=== PATIENT | male | born 1945 | race Caucasian/White ===

== ENCOUNTER → 2018-12-17 | Outpatient (REF) | payer MEDICARE | LOC: M LAB REF 12:56 | PROVIDERS: ATTEND Nurse Practitioner Family | DX: N18.3 Chronic kidney disease, stage 3 (moderate) (principal) ==

== ENCOUNTER → 2020-12-29 | Outpatient (CLI) | payer MEDICARE ==
--- NOTE | 2020-12-29 16:29 | REP ---
INDICATION: CYST OF KIDNEY, CKD STAGE 3A. COMPARISON: None. FINDINGS: The prevoid bladder volume measured 1258 cc. The postvoid bladder volume measured 1023 cc. The postvoid residual is 81%. IMPRESSION: 81% postvoid residual with distended bladder. <Electronically signed by Mele Valdez > 12/29/20 [id number]
--- NOTE | 2020-12-29 16:33 | REP ---
INDICATION: CYST OF KIDNEY, CKD STAGE 3A. COMPARISON: 10/23/2014 FINDINGS: Right kidney: Size-10.9 x 5.6 x 6.8 cm. Parenchymal atrophy. No , mass, calculus or hydronephrosis. 1 cm upper pole cyst and 3 cm lower pole cyst. Left kidney: Size-10.8 x 5.4 x 5.2 cm. Parenchymal atrophy. No hydronephrosis, mass or calculus. 1 cm and 1.8 cm midpole cysts. IMPRESSION: Bilateral renal cysts. Parenchymal atrophy both kidneys. <Electronically signed by Mele Valdez > 12/29/20 [id number]
== END ==
LOC: M RAD 13:17
PROVIDERS: ATTEND Nurse Practitioner Family
DX: N28.1 Cyst of kidney, acquired (principal); N18.31 Chronic kidney disease, stage 3a

== ENCOUNTER 2021-02-01 11:45 | Emergency (ER) | payer MEDICARE ==
[~2021-02-01] VITALS: Ht 170.2 cm; Wt 72.7 kg
[2021-02-01] MEDS ORDERED: LIDOCAINE 2% 5ML JELLY UROJET TOP ONE (14:45)
[2021-02-01 15:42] LABS: APPEARANCE, URINE CLEAR (CLEAR); BACTERIA, URINE AUTO NEGATIVE (NEGATIVE); BILIRUBIN, URINE AUTO NEGATIVE (NEGATIVE); BLOOD, URINE BLOOD NEGATIVE (NEGATIVE); GLUCOSE, URINE (UA) AUTO 1+ mg/dL (NEGATIVE); KETONE, URINE AUTO NEGATIVE (NEGATIVE); LEUKOCYTE ESTERASE, URINE AUTO NEGATIVE (NEGATIVE); MUCUS, URINE SMALL (NEGATIVE); NITRITE, URINE AUTO NEGATIVE (NEGATIVE); PROTEIN, URINE AUTO NEGATIVE (NEGATIVE); RBC, URINE AUTO 3 /HPF (0-3); SPECIFIC GRAVITY URINE AUTO 1.012 (1.002-1.035); SQUAMOUS EPITHELIAL CELL UR AU 0 /HPF (0-6); UROBILINOGEN, URINE AUTO 0.2 mg/dL (0.0-2.0); WBC, URINE AUTO 2 /HPF (0-3)
[2021-02-01 15:43] LABS: COLOR, URINE YELLOW (YELLOW)
[2021-02-01 16:22] VITALS: BP 163/72
[2021-02-01] MEDS ORDERED: FLOM0.4C39 PO (16:24)
[2021-02-01] MEDS ORDERED: AMLO1TAB25 PO (16:24)
[2021-02-01] MEDS ORDERED: MAGN400T2 PO (16:24)
[2021-02-01] MEDS ORDERED: FINA5TAB2 PO (16:24)
[2021-02-01] MEDS ORDERED: METF10004 PO (16:24)
[2021-02-01] MEDS ORDERED: LISI20TA33 PO (16:24)
[2021-02-01] MEDS ORDERED: PIOG1TAB37 PO (16:24)
[2021-02-01] MEDS ORDERED: FENO48TA7 PO (16:24)
[2021-02-01] MEDS ORDERED: ASPI-1 PO (16:24)
[2021-02-01] MEDS ORDERED: ZOCO40TA PO (16:24)
== END 2021-02-01 16:58 | disposition home or self-care (01) ==
LOC: M ED 11:45
DX: R33.9 Retention of urine, unspecified (principal)

== ENCOUNTER → 2021-04-08 | Outpatient (REF) | payer MEDICARE ==
[~2021-04-08] MED LIST: AMLO1TAB25 PO; ASPI-1 PO; BACTDSTA PO; FENO48TA8 PO; FINA5TAB2 PO; FLOM0.4C39 PO; HYDR-3713 PO; LISI20TA33 PO; MAGN400T2 PO; METF10004 PO; PIOG1TAB37 PO; SIMV40TA20 PO; ZOCO40TA PO
[2021-04-08 17:21] LABS: APPEARANCE, URINE CLOUDY (CLEAR); BACTERIA, URINE AUTO 1+ (NEGATIVE); BILIRUBIN, URINE AUTO NEGATIVE (NEGATIVE); BLOOD, URINE BLOOD 1+ (NEGATIVE); COLOR, URINE YELLOW (YELLOW); GLUCOSE, URINE (UA) AUTO 1+ mg/dL (NEGATIVE); KETONE, URINE AUTO NEGATIVE (NEGATIVE); LEUKOCYTE ESTERASE, URINE AUTO 3+ (NEGATIVE); NITRITE, URINE AUTO NEGATIVE (NEGATIVE); PROTEIN, URINE AUTO 2+ mg/dL (NEGATIVE); RBC, URINE AUTO 46 /HPF (0-3); SPECIFIC GRAVITY URINE AUTO 1.014 (1.002-1.035); SQUAMOUS EPITHELIAL CELL UR AU 0 /HPF (0-6); UROBILINOGEN, URINE AUTO 0.2 mg/dL (0.0-2.0); WBC, URINE AUTO TNTC /HPF (0-3)
== END ==
LOC: M SMT 16:58
PROVIDERS: ATTEND Urology
DX: Z01.818 Encounter for other preprocedural examination (principal); N40.1 Benign prostatic hyperplasia with lower urinary tract symptoms

== ENCOUNTER → 2021-04-14 | Outpatient (CLI) | payer MEDICARE ==
[~2021-04-14] MED LIST changes: -BACTDSTA PO; -HYDR-3713 PO
== END ==
LOC: M LABSMTC 10:30
PROVIDERS: ATTEND Anesthesiology
DX: Z01.812 Encounter for preprocedural laboratory examination (principal); Z11.52 Encounter for screening for COVID-19

== ENCOUNTER 2021-04-19 13:14 | Day surgery (SDC) | payer MEDICARE ==
[~2021-04-19] VITALS: Ht 170.2 cm; Wt 70.3 kg
[2021-04-19] VITALS (7 sets, daily range): BP systolic 101–133; BP diastolic 43–71
[~2021-04-19 13:14] MED LIST changes: +CIPROFLOXACIN 400 MG in IV 1 EA IV ONE; +LIDOCAINE 2% 100MG/5ML SDV (FOR ANES.) As Ordered ONE; +LR 1,000 ML IV ONE; +METOCLOPRAMIDE INJ 10MG/2ML VIAL (J2765 PER 1) As Ordered ONE; +MIDAZOLAM INJ 2MG/2ML VIAL (J2250 PER 1MG) As Ordered ONE; +ONDANSETRON 4MG/2ML VIAL As Ordered ONE; +dexameTHASONE 4 MG/ML 1ML VIAL (J1100 PER 1MG) As Ordered ONE; +fentaNYL 100 MCG/2 ML INJECTION As Ordered ONE; +propofoL 200 MG/20 ML VIAL As Ordered ONE
[2021-04-19] MEDS ORDERED: BACTDSTA PO (13:29)
[2021-04-19] MEDS ORDERED: LIDOCAINE 1% SDV 30ML VIAL As Ordered ONE (13:41)
[2021-04-19] MEDS ORDERED: ROCURONIUM BROMIDE 50 MG/5 ML VIAL As Ordered ONE (14:18)
[2021-04-19] MEDS ORDERED: SUGAMMADEX SODIUM 500 MG/5 ML VIAL (BRIDION) As Ordered ONE (14:31)
[2021-04-19] MEDS ORDERED: ACETAMINOPHEN 1000MG 100ML IV BTL (OFIRMEV) (J0131 PER 10MG) As Ordered ONE (14:35)
[2021-04-19] MEDS ORDERED: ACETAMINOPHEN TAB 650MG DOSE (2X325MG) PO PRN (15:10)
[2021-04-19] MEDS ORDERED: ONDANSETRON 4MG/2ML VIAL IV PRN ×2 (15:10→15:20)
[2021-04-19] MEDS ORDERED: GLUCAGON INJ 1MG VIAL SC PRN (15:10)
[2021-04-19] MEDS ORDERED: DEXTROSE 50% 50 ML SYRINGE IV PRN (15:10)
[2021-04-19] MEDS ORDERED: GLUCOSE 4GM CHEW TABLET PO PRN (15:10)
[2021-04-19] MEDS ORDERED: NORCO, ANEXSIA 5/325MG TABLET (HYDROcodone/ACETAMINOPHEN) PO PRN (15:10)
[2021-04-19] MEDS ORDERED: PERCOCET 5MG/325MG TAB PO PRN (15:20)
[2021-04-19] MEDS ORDERED: fentaNYL 100 MCG/2 ML INJECTION IV PRN (15:20)
[2021-04-19] MEDS ORDERED: LR 1,000 ML IV SCH (15:20)
[2021-04-19 16:53] LABS: HEMATOCRIT 32.5 % (42.0-52.0); HEMOGLOBIN 10.4 g/dl (13.5-17.5); MEAN CORPUSCULAR HEMOGLOBIN 31.2 pg (27.0-33.0); MEAN CORPUSCULAR VOLUME 97.6 fl (80.0-96.0); PLATELET COUNT, AUTOMATED 232 10^3/uL (150-450); RED BLOOD COUNT 3.33 10^6/uL (4.30-6.10); WHITE BLOOD COUNT 6.5 10^3/uL (4.0-10.0)
[2021-04-19] MEDS: D5W/0.45% SODIUM CHLORIDE 1,000 ML IV SCH (17:52)
[2021-04-19] MEDS: CIPROFLOXACIN 500MG TABLET PO SCH (18:37)
[2021-04-19] MEDS: HumaLOG INSULIN (NovoLOG) PER UNIT SC SCH (18:38)
[2021-04-19] MEDS ORDERED: HumaLOG INSULIN (NovoLOG) PER UNIT SC SCH (21:00)
[2021-04-20 02:05] VITALS: BP 116/54
[2021-04-20] MEDS: CIPROFLOXACIN 500MG TABLET PO SCH (05:35)
[2021-04-20] MEDS: D5W/0.45% SODIUM CHLORIDE 1,000 ML IV SCH (05:36)
[2021-04-20 06:24] LABS: HEMATOCRIT 29.1 % (42.0-52.0); HEMOGLOBIN 9.3 g/dl (13.5-17.5); MEAN CORPUSCULAR HEMOGLOBIN 30.8 pg (27.0-33.0); MEAN CORPUSCULAR VOLUME 96.4 fl (80.0-96.0); PLATELET COUNT, AUTOMATED 215 10^3/uL (150-450); RED BLOOD COUNT 3.02 10^6/uL (4.30-6.10); WHITE BLOOD COUNT 8.1 10^3/uL (4.0-10.0)
[2021-04-20 06:52] LABS: ALBUMIN 2.6 GM/DL (3.2-5.2); BILIRUBIN,TOTAL 0.2 MG/DL (0.2-1.0); CALCIUM LEVEL 8.4 MG/DL (8.8-10.2); CREATININE FOR GFR 2.5 MG/DL (0.70-1.30); GLOMERULAR FILTRATION RATE 26.8 (>42); POTASSIUM SERUM 4.5 MEQ/L (3.5-5.1); TOTAL PROTEIN 5.3 GM/DL (6.4-8.2)
[2021-04-20] MEDS ORDERED: HYDR-3713 PO (07:16)
[2021-04-20] MEDS ORDERED: FENOFIBRATE 48MG TABLET (TRICOR) PO SCH (09:00)
[2021-04-20] MEDS ORDERED: SIMVASTATIN 40 MG TAB PO SCH (09:00)
[2021-04-20] MEDS ORDERED: FINASTERIDE 5 MG TAB PO SCH (09:00)
[2021-04-20] MEDS ORDERED: NON-FORMULARY 1 EA EA PO SCH (09:00)
[2021-04-20 09:28] VITALS: BP 120/52
[2021-04-20] MEDS: HumaLOG INSULIN (NovoLOG) PER UNIT SC SCH ×2 (09:29→12:46)
== END 2021-04-20 16:53 | disposition home health service (06) ==
LOC: M SDC 13:14 → M MSPAV 17:08 → M SDC 04-20 16:53
PROVIDERS: ATTEND Urology
DX: R33.9 Retention of urine, unspecified (principal); N40.1 Benign prostatic hyperplasia with lower urinary tract symptoms; E11.9 Type 2 diabetes mellitus without complications; I10 Essential (primary) hypertension; Z79.84 Long term (current) use of oral hypoglycemic drugs; Z79.899 Other long term (current) drug therapy; E78.5 Hyperlipidemia, unspecified
CPT/HCPCS: 36415; 51040; 80053; 85027; J0131; J0744; J1100; J2250; J2405; J2765; J3010

== ENCOUNTER → 2022-05-02 | Outpatient (CLI) | payer MEDICARE ==
[~2022-05-02] MED LIST changes: +BACTDSTA PO; -CIPROFLOXACIN 400 MG in IV 1 EA IV ONE; +HYDR-3713 PO; -LIDOCAINE 2% 100MG/5ML SDV (FOR ANES.) As Ordered ONE; -LR 1,000 ML IV ONE; -METOCLOPRAMIDE INJ 10MG/2ML VIAL (J2765 PER 1) As Ordered ONE; -MIDAZOLAM INJ 2MG/2ML VIAL (J2250 PER 1MG) As Ordered ONE; -ONDANSETRON 4MG/2ML VIAL As Ordered ONE; -dexameTHASONE 4 MG/ML 1ML VIAL (J1100 PER 1MG) As Ordered ONE; -fentaNYL 100 MCG/2 ML INJECTION As Ordered ONE; -propofoL 200 MG/20 ML VIAL As Ordered ONE
== END ==
LOC: M PLALAB 09:30
PROVIDERS: ATTEND Urology
DX: R97.20 Elevated prostate specific antigen [PSA] (principal)

== ENCOUNTER → 2022-06-10 | Outpatient (REF) | payer MEDICARE | LOC: M SMT 09:46 | PROVIDERS: ATTEND Urology | DX: C61 Malignant neoplasm of prostate (principal); R97.20 Elevated prostate specific antigen [PSA] ==

== ENCOUNTER → 2022-06-15 | Outpatient (CLI) | payer MEDICARE ==
[~2022-06-15] MED LIST changes: +BICA50TA9; +CHOL125C5 PO; +CVS5000S2 PO; +EYECAP2 PO; +GOOD81CH3 PO; +SIMV-254 PO; -ZOCO40TA PO
[2022-06-15 15:31] LABS: HEMATOCRIT 35.6 % (42.0-52.0); HEMOGLOBIN 11.2 g/dl (13.5-17.5); MEAN CORPUSCULAR HEMOGLOBIN 30.1 pg (27.0-33.0); MEAN CORPUSCULAR HGB CONC 31.5 g/dl (32.0-36.5); MEAN CORPUSCULAR VOLUME 95.7 fl (80.0-96.0); PLATELET COUNT, AUTOMATED 347 10^3/uL (150-450); RED BLOOD COUNT 3.72 10^6/uL (4.30-6.10); WHITE BLOOD COUNT 7.9 10^3/uL (4.0-10.0)
[2022-06-15 15:50] LABS: ALBUMIN 3.3 G/DL (3.2-5.2); BILIRUBIN,TOTAL 0.5 MG/DL (0.3-1.2); CALCIUM LEVEL 9.1 MG/DL (8.3-10.6); CREATININE FOR GFR 1.86 MG/DL (0.70-1.30); GLOMERULAR FILTRATION RATE 37.6 (>42); POTASSIUM SERUM 4.6 MMOL/L (3.5-5.1); TOTAL PROTEIN 6.1 G/DL (5.7-8.2)
== END ==
LOC: M PLALAB 13:45
PROVIDERS: ATTEND Urology
DX: C61 Malignant neoplasm of prostate (principal)

== ENCOUNTER → 2022-07-06 | Outpatient (REF) | payer MEDICARE ==
[~2022-07-06] MED LIST changes: -SIMV-254 PO; +ZOCO40TA PO
== END ==
LOC: M LAB REF 17:04
PROVIDERS: ATTEND Nurse Practitioner Family
DX: N39.0 Urinary tract infection, site not specified (principal)

== ENCOUNTER → 2022-08-25 | Outpatient (REF) | payer MEDICARE ==
[~2022-08-25] MED LIST changes: +AMLO1TAB24 PO; +ASPI-527 PO; +D 1010002 PO; +FURO20TA2 PO; +GLIM2TAB29 PO; +METF-877 PO; +OCUVTAB4 PO; +ONDA4TAB6 PO; +PRED5TA PO; +SIMV-254 PO; +VITA500T40 PO; +XTAN40CA PO; -ZOCO40TA PO; +ZYTI250T PO
[2022-08-25 18:28] LABS: APPEARANCE, URINE CLOUDY (CLEAR); BACTERIA, URINE AUTO 2+ (NEGATIVE); BILIRUBIN, URINE AUTO NEGATIVE (NEGATIVE); BLOOD, URINE BLOOD 3+ (NEGATIVE); COLOR, URINE RED (YELLOW); GLUCOSE, URINE (UA) AUTO 1+ mg/dL (NEGATIVE); KETONE, URINE AUTO NEGATIVE (NEGATIVE); LEUKOCYTE ESTERASE, URINE AUTO 1+ (NEGATIVE); NITRITE, URINE AUTO NEGATIVE (NEGATIVE); PROTEIN, URINE AUTO 2+ mg/dL (NEGATIVE); RBC, URINE AUTO TNTC /HPF (0-3); SPECIFIC GRAVITY URINE AUTO 1.011 (1.002-1.035); SQUAMOUS EPITHELIAL CELL UR AU 0 /HPF (0-6); UROBILINOGEN, URINE AUTO 0.2 mg/dL (0.0-2.0); WBC, URINE AUTO 157 /HPF (0-3)
== END ==
LOC: M SMT 16:53
PROVIDERS: ATTEND Urology
DX: R31.0 Gross hematuria (principal)

== ENCOUNTER 2022-09-07 15:19 | Inpatient (IN) | payer MEDICARE ==
[~2022-09-07] VITALS: Ht 167.6 cm; Wt 62.0 kg
[~2022-09-07 15:19] MED LIST changes: +BACI1CAP PO; +DOXY-444 PO
[2022-09-07 16:50] LABS: BASO % 0.1 % (0.0-1.0); HEMATOCRIT 38.4 % (42.0-52.0); HEMOGLOBIN 12.1 g/dl (13.5-17.5); LYMPH # 0.4 10^3/uL (1.5-5.0); LYMPH % 3.8 % (24.0-44.0); MEAN CORPUSCULAR HEMOGLOBIN 29.2 pg (27.0-33.0); MEAN CORPUSCULAR HGB CONC 31.5 g/dl (32.0-36.5); MEAN CORPUSCULAR VOLUME 92.5 fl (80.0-96.0); MONO # 0.3 10^3/uL (0.0-0.8); MONO % 3.2 % (2.0-8.0); NEUTROPHILS # 9.7 10^3/uL (1.5-8.5); NEUTROPHILS % 91.9 % (36.0-66.0); PLATELET COUNT, AUTOMATED 391 10^3/uL (150-450); RED BLOOD COUNT 4.15 10^6/uL (4.30-6.10); WHITE BLOOD COUNT 10.5 10^3/uL (4.0-10.0)
[2022-09-07 17:14] LABS: ALBUMIN 2.5 G/DL (3.2-5.2); BILIRUBIN,DIRECT 0.3 MG/DL (<0.4); BILIRUBIN,TOTAL 0.6 MG/DL (0.3-1.2); CALCIUM LEVEL 8.1 MG/DL (8.3-10.6); CREATININE FOR GFR 2.03 MG/DL (0.70-1.30); GLOMERULAR FILTRATION RATE 33.9 (>42); POTASSIUM SERUM 5.1 MMOL/L (3.5-5.1); TOTAL PROTEIN 5.9 G/DL (5.7-8.2)
[2022-09-07 17:17] LABS: FREE T4 1.34 NG/DL (0.89-1.76); THYROID STIMULATING HORMONE 1.293 uIU/ML (0.55-4.78)
[2022-09-07 17:24] LABS: RSV AMPLIFICATION NEGATIVE (NEGATIVE)
[2022-09-07] MEDS ORDERED: PRED5TA PO (18:51)
[2022-09-07] MEDS ORDERED: BACI1CAP PO (18:51)
[2022-09-07] MEDS ORDERED: DOXY-443 PO (18:51)
[2022-09-07] MEDS ORDERED: HOME MED LIST COMPLETE! XX SCH (19:00)
[2022-09-07] MEDS ORDERED: ACETAMINOPHEN TAB 650MG DOSE (2X325MG) PO PRN (19:20)
[2022-09-07] MEDS ORDERED: GLUCAGON INJ 1MG VIAL SC PRN (19:20)
[2022-09-07] MEDS ORDERED: DEXTROSE 50% 50ML SYRINGE IV PRN (19:20)
[2022-09-07] MEDS ORDERED: GLUCOSE 4GM CHEW TABLET PO PRN (19:20)
[2022-09-07] MEDS ORDERED: ONDANSETRON 4MG 2ML VIAL As Ordered ONE (19:38)
[2022-09-07] MEDS ORDERED: ONDANSETRON 4MG 2ML VIAL IV ONE (19:40)
[2022-09-07 21:25] VITALS: BP 133/56
[2022-09-07] MEDS: INSULIN LISPRO (NovoLOG) PER UNIT SC SCH (22:29)
[2022-09-08] MEDS ORDERED: cefTRIAXone SOD 1 GM in D5W MINI-BAG PLUS 50 ML IV SCH (03:00)
[2022-09-08] MEDS: predniSONE 5 MG TAB PO SCH ×2 (05:50→17:37)
[2022-09-08 06:00] VITALS: BP 128/54
[2022-09-08 06:02] LABS: HEMATOCRIT 29.9 % (42.0-52.0); MEAN CORPUSCULAR HEMOGLOBIN 29.1 pg (27.0-33.0); MEAN CORPUSCULAR HGB CONC 32.1 g/dl (32.0-36.5); MEAN CORPUSCULAR VOLUME 90.6 fl (80.0-96.0); PLATELET COUNT, AUTOMATED 340 10^3/uL (150-450); WHITE BLOOD COUNT 15.1 10^3/uL (4.0-10.0)
[2022-09-08 06:19] LABS: HEMOGLOBIN 9.6 g/dl (13.5-17.5)
[2022-09-08 06:48] LABS: ALBUMIN 1.9 G/DL (3.2-5.2); BILIRUBIN,TOTAL 0.5 MG/DL (0.3-1.2); CALCIUM LEVEL 7.3 MG/DL (8.3-10.6); CREATININE FOR GFR 2.21 MG/DL (0.70-1.30); GLOMERULAR FILTRATION RATE 30.7 (>42); MAGNESIUM LEVEL 1.8 MG/DL (1.8-2.4); POTASSIUM SERUM 5.2 MMOL/L (3.5-5.1); TOTAL PROTEIN 4.4 G/DL (5.7-8.2)
[2022-09-08] MEDS ORDERED: cefTRIAXone SOD 1 GM in D5W MINI-BAG PLUS 50 ML IV ONE (07:50)
[2022-09-08] MEDS: FUROSEMIDE 20 MG TAB PO SCH (08:24)
[2022-09-08] MEDS: SIMVASTATIN 40 MG TAB PO SCH (08:24)
[2022-09-08] MEDS: ASPIRIN ENTERIC 325MG TAB PO SCH (08:24)
[2022-09-08] MEDS: CYANOCOBALAMIN 500 MCG TAB PO SCH (08:24)
[2022-09-08] MEDS: DOXYCYCLINE HYCLATE 100MG TABLET PO SCH ×2 (08:24→20:45)
[2022-09-08] MEDS: INSULIN LISPRO (NovoLOG) PER UNIT SC SCH ×4 (08:25→20:46)
[2022-09-08] MEDS ORDERED: ENTER DRUG NAME HERE (PATIENT'S OWN MED) PO SCH (09:00)
[2022-09-08] MEDS: SENOKOT S TAB PO SCH ×2 (11:11→20:45)
[2022-09-08 12:19] LABS: HEMATOCRIT 31.4 % (42.0-52.0); MEAN CORPUSCULAR HEMOGLOBIN 29.2 pg (27.0-33.0); MEAN CORPUSCULAR HGB CONC 31.8 g/dl (32.0-36.5); MEAN CORPUSCULAR VOLUME 91.5 fl (80.0-96.0); PLATELET COUNT, AUTOMATED 323 10^3/uL (150-450); RED BLOOD COUNT 3.43 10^6/uL (4.30-6.10); WHITE BLOOD COUNT 16.5 10^3/uL (4.0-10.0)
[2022-09-08] MEDS: PATIROMER SORBITEX CALCIUM 8.4 GM POWDER PACKET (VELTASSA) PO SCH (13:31)
[2022-09-08] MEDS: SODIUM BICARBONATE 325 MG TAB PO SCH ×3 (13:31→20:45)
[2022-09-08 14:00] VITALS: BP 132/53
[2022-09-08] MEDS: FINASTERIDE 5MG TAB PO SCH (20:45)
[2022-09-09] MEDS: cefTRIAXone SOD 2 GM in D5W MINI-BAG PLUS 50 ML IV SCH (02:07)
[2022-09-09] MEDS: predniSONE 5 MG TAB PO SCH ×2 (05:02→17:37)
[2022-09-09] MEDS: ONDANSETRON 4MG TAB PO PRN (05:04)
[2022-09-09 06:00] VITALS: BP 129/52
[2022-09-09 06:29] LABS: BASO % 0.1 % (0.0-1.0); HEMATOCRIT 28.1 % (42.0-52.0); HEMOGLOBIN 9.3 g/dl (13.5-17.5); LYMPH # 0.8 10^3/uL (1.5-5.0); LYMPH % 4.7 % (24.0-44.0); MEAN CORPUSCULAR HEMOGLOBIN 29.3 pg (27.0-33.0); MEAN CORPUSCULAR HGB CONC 33.1 g/dl (32.0-36.5); MEAN CORPUSCULAR VOLUME 88.6 fl (80.0-96.0); MONO % 6.3 % (2.0-8.0); NEUTROPHILS % 87.8 % (36.0-66.0); PLATELET COUNT, AUTOMATED 311 10^3/uL (150-450); RED BLOOD COUNT 3.17 10^6/uL (4.30-6.10); WHITE BLOOD COUNT 15.9 10^3/uL (4.0-10.0)
[2022-09-09 06:54] LABS: ALBUMIN 1.7 G/DL (3.2-5.2); BILIRUBIN,TOTAL 0.5 MG/DL (0.3-1.2); CALCIUM LEVEL 7.2 MG/DL (8.3-10.6); CREATININE FOR GFR 2.4 MG/DL (0.70-1.30); GLOMERULAR FILTRATION RATE 27.9 (>42); MAGNESIUM LEVEL 1.8 MG/DL (1.8-2.4); POTASSIUM SERUM 4.8 MMOL/L (3.5-5.1); TOTAL PROTEIN 4.1 G/DL (5.7-8.2)
[2022-09-09] MEDS: SODIUM BICARBONATE 325 MG TAB PO SCH ×3 (08:26→21:30)
[2022-09-09] MEDS: SENOKOT S TAB PO SCH ×2 (08:26→21:00)
[2022-09-09] MEDS: FUROSEMIDE 20 MG TAB PO SCH (08:26)
[2022-09-09] MEDS: SIMVASTATIN 40 MG TAB PO SCH (08:26)
[2022-09-09] MEDS: CYANOCOBALAMIN 500 MCG TAB PO SCH (08:26)
[2022-09-09] MEDS: DOXYCYCLINE HYCLATE 100MG TABLET PO SCH ×2 (08:26→21:30)
[2022-09-09] MEDS: ASPIRIN ENTERIC 325MG TAB PO SCH (08:26)
[2022-09-09] MEDS: INSULIN LISPRO (NovoLOG) PER UNIT SC SCH ×4 (08:27→21:00)
[2022-09-09] MEDS ORDERED: LEVEMIR (INSULIN DETEMIR) 1 UNITS/0.01ML SC ONE (09:00)
[2022-09-09] MEDS: PATIROMER SORBITEX CALCIUM 8.4 GM POWDER PACKET (VELTASSA) PO SCH (11:58)
[2022-09-09] MEDS: FINASTERIDE 5MG TAB PO SCH (21:30)
[2022-09-10] MEDS: cefTRIAXone SOD 2 GM in D5W MINI-BAG PLUS 50 ML IV SCH (02:19)
[2022-09-10 05:21] VITALS: BP 127/52
[2022-09-10] MEDS: predniSONE 5 MG TAB PO SCH ×2 (05:33→17:46)
[2022-09-10] MEDS: ONDANSETRON 4MG TAB PO PRN ×3 (05:33→12:56)
[2022-09-10] MEDS: INSULIN LISPRO (NovoLOG) PER UNIT SC SCH ×4 (07:30→20:49)
[2022-09-10 08:08] LABS: BASO % 0.1 % (0.0-1.0); HEMATOCRIT 27.9 % (42.0-52.0); HEMOGLOBIN 9.4 g/dl (13.5-17.5); LYMPH # 0.7 10^3/uL (1.5-5.0); LYMPH % 4.6 % (24.0-44.0); MEAN CORPUSCULAR HEMOGLOBIN 29.6 pg (27.0-33.0); MEAN CORPUSCULAR HGB CONC 33.7 g/dl (32.0-36.5); MEAN CORPUSCULAR VOLUME 87.7 fl (80.0-96.0); MONO # 1.4 10^3/uL (0.0-0.8); MONO % 8.9 % (2.0-8.0); NEUTROPHILS # 13.3 10^3/uL (1.5-8.5); NEUTROPHILS % 85.6 % (36.0-66.0); PLATELET COUNT, AUTOMATED 264 10^3/uL (150-450); RED BLOOD COUNT 3.18 10^6/uL (4.30-6.10); WHITE BLOOD COUNT 15.5 10^3/uL (4.0-10.0)
[2022-09-10 08:16] LABS: ERYTHROCYTE SEDIMENTATION RATE < 1 mm/hr (0-20)
[2022-09-10 08:29] LABS: C REACTIVE PROTEIN QUANTITATIV 2.3 MG/DL (<1.0)
[2022-09-10 08:31] LABS: CALCIUM LEVEL 6.8 MG/DL (8.3-10.6); CREATININE FOR GFR 2.37 MG/DL (0.70-1.30); GLOMERULAR FILTRATION RATE 28.3 (>42); POTASSIUM SERUM 4.3 MMOL/L (3.5-5.1)
[2022-09-10] MEDS: CYANOCOBALAMIN 500 MCG TAB PO SCH (08:40)
[2022-09-10] MEDS: SENOKOT S TAB PO SCH ×2 (08:40→20:22)
[2022-09-10] MEDS: DOXYCYCLINE HYCLATE 100MG TABLET PO SCH ×2 (08:40→20:22)
[2022-09-10] MEDS: SODIUM BICARBONATE 325 MG TAB PO SCH ×3 (08:40→20:22)
[2022-09-10] MEDS: FUROSEMIDE 20 MG TAB PO SCH (08:41)
[2022-09-10] MEDS: ASPIRIN ENTERIC 325MG TAB PO SCH (08:41)
[2022-09-10] MEDS: SIMVASTATIN 40 MG TAB PO SCH (08:41)
[2022-09-10] MEDS: PATIROMER SORBITEX CALCIUM 8.4 GM POWDER PACKET (VELTASSA) PO SCH (12:52)
[2022-09-10] MEDS: FINASTERIDE 5MG TAB PO SCH (20:22)
[2022-09-11] MEDS: cefTRIAXone SOD 2 GM in D5W MINI-BAG PLUS 50 ML IV SCH (02:08)
[2022-09-11 05:20] VITALS: BP 118/50
[2022-09-11] MEDS: predniSONE 5 MG TAB PO SCH ×2 (05:29→17:51)
[2022-09-11] MEDS: INSULIN LISPRO (NovoLOG) PER UNIT SC SCH ×4 (08:24→20:56)
[2022-09-11] MEDS: ASPIRIN ENTERIC 325MG TAB PO SCH (08:25)
[2022-09-11] MEDS: CYANOCOBALAMIN 500 MCG TAB PO SCH (08:25)
[2022-09-11] MEDS: SODIUM BICARBONATE 325 MG TAB PO SCH ×3 (08:25→21:36)
[2022-09-11] MEDS: DOXYCYCLINE HYCLATE 100MG TABLET PO SCH (08:25)
[2022-09-11] MEDS: SIMVASTATIN 40 MG TAB PO SCH (08:25)
[2022-09-11] MEDS: FUROSEMIDE 20 MG TAB PO SCH (08:25)
[2022-09-11] MEDS: ONDANSETRON 4MG TAB PO PRN (08:29)
[2022-09-11] MEDS: SENOKOT S TAB PO SCH ×2 (08:37→20:56)
[2022-09-11 10:10] LABS: BASO % 0.1 % (0.0-1.0); HEMATOCRIT 27.9 % (42.0-52.0); HEMOGLOBIN 9.2 g/dl (13.5-17.5); LYMPH # 0.2 10^3/uL (1.5-5.0); LYMPH % 1.3 % (24.0-44.0); MEAN CORPUSCULAR HEMOGLOBIN 29.4 pg (27.0-33.0); MEAN CORPUSCULAR VOLUME 89.1 fl (80.0-96.0); MONO # 0.8 10^3/uL (0.0-0.8); MONO % 5.3 % (2.0-8.0); NEUTROPHILS # 13.2 10^3/uL (1.5-8.5); NEUTROPHILS % 92.8 % (36.0-66.0); PLATELET COUNT, AUTOMATED 254 10^3/uL (150-450); RED BLOOD COUNT 3.13 10^6/uL (4.30-6.10); WHITE BLOOD COUNT 14.2 10^3/uL (4.0-10.0)
[2022-09-11 10:47] LABS: ALBUMIN 1.5 G/DL (3.2-5.2); BILIRUBIN,TOTAL 0.6 MG/DL (0.3-1.2); CALCIUM LEVEL 6.4 MG/DL (8.3-10.6); CREATININE FOR GFR 2.5 MG/DL (0.70-1.30); GLOMERULAR FILTRATION RATE 26.7 (>42); POTASSIUM SERUM 4.2 MMOL/L (3.5-5.1); TOTAL PROTEIN 3.7 G/DL (5.7-8.2)
[2022-09-11] MEDS: PIPERACILLIN/TAZOBACTAM SOD 2.25 GM in D5W MINI-BAG PLUS 50 ML IV SCH ×3 (10:52→21:36)
[2022-09-11] MEDS: LACTOBACILLUS ACIDOPHILUS CAP (BACID) PO SCH ×3 (11:46→21:36)
[2022-09-11] MEDS: METOCLOPRAMIDE INJ 10MG/2ML VIAL IV SCH ×3 (11:46→21:37)
[2022-09-11] MEDS: PATIROMER SORBITEX CALCIUM 8.4 GM POWDER PACKET (VELTASSA) PO SCH (12:00)
[2022-09-11] MEDS: FINASTERIDE 5MG TAB PO SCH (21:36)
[2022-09-12] MEDS: PIPERACILLIN/TAZOBACTAM SOD 2.25 GM in D5W MINI-BAG PLUS 50 ML IV SCH (04:12)
[2022-09-12] MEDS: predniSONE 5 MG TAB PO SCH (05:00)
[2022-09-12 05:56] LABS: BASO % 0.1 % (0.0-1.0); EOS % 0.1 % (0.0-3.0); HEMATOCRIT 28.6 % (42.0-52.0); HEMOGLOBIN 9.6 g/dl (13.5-17.5); LYMPH # 0.8 10^3/uL (1.5-5.0); LYMPH % 6.2 % (24.0-44.0); MEAN CORPUSCULAR HEMOGLOBIN 29.2 pg (27.0-33.0); MEAN CORPUSCULAR HGB CONC 33.6 g/dl (32.0-36.5); MEAN CORPUSCULAR VOLUME 86.9 fl (80.0-96.0); MONO # 1.4 10^3/uL (0.0-0.8); MONO % 10.3 % (2.0-8.0); NEUTROPHILS # 10.9 10^3/uL (1.5-8.5); NEUTROPHILS % 82.6 % (36.0-66.0); PLATELET COUNT, AUTOMATED 234 10^3/uL (150-450); RED BLOOD COUNT 3.29 10^6/uL (4.30-6.10); WHITE BLOOD COUNT 13.2 10^3/uL (4.0-10.0)
[2022-09-12 06:00] VITALS: BP 118/49
[2022-09-12] MEDS ORDERED: metroNIDAZOLE (FLAGYL) 500MG TABLET PO SCH (06:00)
[2022-09-12] MEDS ORDERED: LevoFLOXacin 750 MG TABLET PO SCH (06:00)
[2022-09-12 06:20] LABS: ALBUMIN 1.4 G/DL (3.2-5.2); BILIRUBIN,TOTAL 0.6 MG/DL (0.3-1.2); CALCIUM LEVEL 6.1 MG/DL (8.3-10.6); CREATININE FOR GFR 2.58 MG/DL (0.70-1.30); GLOMERULAR FILTRATION RATE 25.7 (>42); POTASSIUM SERUM 3.8 MMOL/L (3.5-5.1); TOTAL PROTEIN 3.6 G/DL (5.7-8.2)
[2022-09-12] MEDS ORDERED: MORP1SOL5 PO (07:52)
[2022-09-12] MEDS ORDERED: ATIV1TAB10 PO (07:52)
[2022-09-12] MEDS ORDERED: HYOS125TA PO (07:52)
[2022-09-12] MEDS: INSULIN LISPRO (NovoLOG) PER UNIT SC SCH (08:29)
[2022-09-12] MEDS: METOCLOPRAMIDE INJ 10MG/2ML VIAL IV SCH (08:29)
[2022-09-12] MEDS: CYANOCOBALAMIN 500 MCG TAB PO SCH (08:30)
[2022-09-12] MEDS: LACTOBACILLUS ACIDOPHILUS CAP (BACID) PO SCH (08:30)
[2022-09-12] MEDS: SODIUM BICARBONATE 325 MG TAB PO SCH (08:30)
[2022-09-12] MEDS: SENOKOT S TAB PO SCH (08:30)
[2022-09-12] MEDS: FUROSEMIDE 20 MG TAB PO SCH (08:30)
[2022-09-12] MEDS: SIMVASTATIN 40 MG TAB PO SCH (08:30)
[2022-09-12] MEDS: ASPIRIN ENTERIC 325MG TAB PO SCH (08:30)
[2022-09-12 08:32] LABS: C REACTIVE PROTEIN QUANTITATIV 5.3 MG/DL (<1.0)
[2022-09-12 08:52] LABS: ERYTHROCYTE SEDIMENTATION RATE < 1 mm/hr (0-20)
[2022-09-12] MEDS ORDERED: BISACODYL 10MG SUPP PR PRN (10:20)
[2022-09-12] MEDS ORDERED: HYOSCYAMINE SULFATE 0.125 MG SUBL TABLET PO PRN (10:20)
[2022-09-12] MEDS ORDERED: LORazepam 1 MG TAB PO PRN (10:20)
[2022-09-12] MEDS ORDERED: ATROPINE SULFATE 1% OPHTH SOLN 2ML BTL SL PRN (10:20)
[2022-09-12] MEDS ORDERED: MORPHINE 10MG/0.5ML ORAL CONCENTRATE SOLUTION U/D SL PRN (10:20)
[2022-09-12] MEDS ORDERED: SCOPOLAMINE 1MG TRANSDERMAL PATCH TOP PRN (10:20)
[2022-09-12] MEDS: ONDANSETRON 4MG ORAL DISINTEGRATING TAB PO PRN (14:38)
[2022-09-13] MEDS: ONDANSETRON 4MG ORAL DISINTEGRATING TAB PO PRN (09:24)
[2022-09-13 10:08] LABS: BODY FLUID CULTURE Not indicated. (.); LEGIONELLA ANTIGEN URINE Positive (Negative); ORGANISM ID Not indicated. (.); SPECIMEN SOURCE Urine (.)
[2022-09-13 12:08] LABS: URINE STREP PNEUMONIAE ANTIGEN Negative (Negative)
[2022-09-13] MEDS ORDERED: traZODone 100 MG TAB PO PRN (13:20)
[2022-09-13] MEDS: METOCLOPRAMIDE 10MG TAB PO SCH ×2 (17:33→21:25)
[2022-09-14] MEDS: METOCLOPRAMIDE 10MG TAB PO SCH ×4 (09:10→20:59)
[2022-09-14] MEDS ORDERED: MORPHINE 10MG/0.5ML ORAL CONCENTRATE SOLUTION U/D SL PRN (16:45)
[2022-09-14] MEDS ORDERED: LORazepam 1 MG TAB PO PRN (16:45)
[2022-09-15] MEDS: METOCLOPRAMIDE 10MG TAB PO SCH (07:30)
[2022-09-15] MEDS ORDERED: MORP1SOL5 PO (10:59)
[2022-09-15] MEDS ORDERED: HYOS125TA PO (10:59)
[2022-09-15] MEDS ORDERED: ATIV1TAB10 PO (10:59)
== END 2022-09-15 10:44 | disposition hospice, home (50) | DRG 696 ==
LOC: M ED 15:19 → M ED INP 19:20 → M MSPAV 21:31
PROVIDERS: ADMIT Family Medicine; ATTEND General Practice
DX: R31.0 Gross hematuria (principal); C78.01 Secondary malignant neoplasm of right lung; E87.20 Acidosis, unspecified; C79.51 Secondary malignant neoplasm of bone; C78.02 Secondary malignant neoplasm of left lung; J91.0 Malignant pleural effusion; C78.7 Secondary malignant neoplasm of liver and intrahepatic bile duct; I48.20 Chronic atrial fibrillation, unspecified; E87.21 Acute metabolic acidosis; D62 Acute posthemorrhagic anemia; E87.1 Hypo-osmolality and hyponatremia; N17.9 Acute kidney failure, unspecified; N13.30 Unspecified hydronephrosis; C61 Malignant neoplasm of prostate; E11.22 Type 2 diabetes mellitus with diabetic chronic kidney disease; I12.9 Hypertensive chronic kidney disease with stage 1 through stage 4 chronic kidney disease, or unspecified chronic kidney disease; Z66 Do not resuscitate; N18.9 Chronic kidney disease, unspecified; E78.5 Hyperlipidemia, unspecified; R53.1 Weakness; R13.10 Dysphagia, unspecified; K21.9 Gastro-esophageal reflux disease without esophagitis; I25.10 Atherosclerotic heart disease of native coronary artery without angina pectoris; E78.00 Pure hypercholesterolemia, unspecified; R59.9 Enlarged lymph nodes, unspecified; E88.09 Other disorders of plasma-protein metabolism, not elsewhere classified; R74.01 Elevation of levels of liver transaminase levels; Z87.891 Personal history of nicotine dependence; Z51.5 Encounter for palliative care